=== PATIENT | male | born 1980 | race African-American/Black ===

== ENCOUNTER → 2016-05-15 | Outpatient (CLI) | payer OTHER ==
--- NOTE | 2016-05-15 15:45 | KCIC ---
PROCEDURE Left ankle, three views. HISTORY Rolled ankle. FINDINGS Frontal, lateral and mortise views of the left ankle are obtained. There is no fracture, dislocation or subluxation. There is no osteochondral lesion. There is diffuse ankle and hindfoot soft tissue swelling. IMPRESSION 1. No acute osseous finding. 2. Diffuse soft tissue swelling. Electronically signed by: Nina Rincon (May 15, 2016 15:44:19)
== END | disposition home or self-care (01) ==
LOC: KCIC 14:43
PROVIDERS: ATTEND Nurse Practitioner Family
DX: M25.572 Pain in left ankle and joints of left foot (principal)
CPT/HCPCS: 73610